=== PATIENT | female | born 1985 | race Caucasian/White ===

== ENCOUNTER 2016-08-06 07:51 | Emergency (ER) | payer SELFPAY ==
[~2016-08-06] VITALS: Ht 165.1 cm; Wt 59.9 kg
[~2016-08-06 07:51] MED LIST: BENZ100C PO; BUTA1CAP29 PO; ONDA4TAB10 SL; PROAIR HFA8.5 GM INH
--- NOTE | 2016-08-06 09:18 | RAD ---
INDICATION: cough, fever COMPARISON: 04/15/2016 FINDINGS: 2 views of chest obtained. No focal airspace consolidation. Mediastinal contour is unremarkable. No gross osseous destructive lesion. IMPRESSION: No focal airspace consolidation or edema.
--- NOTE | 2016-08-06 09:23 | PHYS DOC ---
Past Medical History Past Medical History: Depression, Hypothyroid, Migraines, Seizure, Other Additional Past Medical Histor: Pneumothorax Past Surgical History: Appendectomy, Cholecystectomy, Other Additional Past Surgical Histo: chest tube insertion Smoking: Less than 1pk/day Alcohol Use: None Drug Use: None Adult General Chief Complaint Chief Complaint: NAUSEA/VOMITING/DIARRHA HPI HPI Patient is a 31 year old female who presents with cough, subjective fever, and body aches that started 2 days ago. She's had nasal congestion, left ear pain, and posttussive emesis. She denies sore throat, difficulty breathing, abdominal pain, or diarrhea. She did not receive a flu shot this year. She denies any known sick contacts. She does not have a PCP. Review of Systems Review of Systems Constitutional: Reports subjective fever. Eyes: Denies change in visual acuity, redness, or eye pain. [] HENT: Denies sore throat. Reports left ear pain and nasal congestion. Respiratory: Denies shortness of breath. Reports cough. Cardiovascular: Denies chest pain, palpitations or edema. [] GI: Denies abdominal pain, nausea, bloody stools or diarrhea. Reports posttussive emesis. Musculoskeletal: Denies back pain or joint pain. Reports diffuse myalgias. Integument: Denies rash or skin lesions. [] Neurologic: Denies headache, focal weakness or sensory changes. [] All systems reviewed and negative unless otherwise stated in the HPI. Allergies Allergies Allergies Coded Allergies Type Severity Reaction Last Updated Verified Sulfa (Sulfonamide Antibiotics) Allergy Intermediate hives 12/05/15 Yes Physical Exam Physical Exam Constitutional: Well developed, well nourished, no acute distress, non-toxic appearance. [] HENT: Normocephalic, atraumatic, bilateral external ears normal, oropharynx moist, no oral exudates, nose normal. Bilateral TMs without erythema or bulging. There is no posterior pharyngeal erythema or tonsillar edema. Bilateral nasal turbinates are mildly swollen and erythematous. Eyes: PERRLA, EOMI, conjunctiva normal, no discharge. [] Neck: Normal range of motion, no tenderness, supple, no stridor. [] Cardiovascular: Heart rate regular rhythm, no murmur [] Lungs & Thorax: Bilateral breath sounds clear to auscultation without wheezes, rales, or rhonchi. Abdomen: Bowel sounds normal, soft, no tenderness, no masses, no pulsatile masses. [] Skin: Warm, dry, no erythema, no rash. [] Neurologic: Alert and oriented X 3, normal motor function, normal sensory function, no focal deficits noted. [] Psychologic: Affect normal, judgement normal, mood normal. [] Current Patient Data Vital Signs Vital Signs Date Time Temp Pulse Resp B/P Pulse Ox O2 Delivery O2 Flow Rate FiO2 08/06/16 08:55 99.0 64 20 98 Room Air 99.0 Lab Values Laboratory Tests Test 08/06/16 09:00 Influenza Type A Antigen Positive (NEGATIVE) Influenza Type B Antigen Negative (NEGATIVE) EKG EKG [] Radiology/Procedures Radiology/Procedures REASON: cough, fever PROCEDURE: CHEST PA & LATERAL INDICATION: cough, fever COMPARISON: 04/15/2016 FINDINGS: 2 views of chest obtained. No focal airspace consolidation. Mediastinal contour is unremarkable. No gross osseous destructive lesion. IMPRESSION: No focal airspace consolidation or edema. Course & Med Decision Making Course & Med Decision Making Pertinent Labs and Imaging studies reviewed. (See chart for details) [] Dragon Disclaimer Dragon Disclaimer This electronic medical record was generated, in whole or in part, using a voice recognition dictation system. Departure Departure Impression: Primary Impression: Influenza A Disposition: 01 HOME, SELF-CARE Condition: STABLE Referrals: NO PCP (PCP) Patient Instructions: Influenza, Adult, Ydrh-ys-Fcle Additional Instructions: You tested positive for influenza A. Your chest xray does now show pnuemonia. Please complete all of the prescribed medication. Please use the prescribed inhaler as needed for cough or shortness of breath. Do not use more often than directed. Please take Tylenol and ibuprofen for fever and pain. Use according to package instructions. Please stay home from work this week to avoid exposing others to the flu. It is very contagious! Return to the emergency department if you have high fever not responding to medication, difficult to breathing, or other new or concerning symptoms. Scripts Oseltamivir Phosphate (Tamiflu)75 Mg Capsule1 Cap PO BID #10 CAP Prov:CHELY SHEA 08/06/16 Albuterol Sulfate (Proair Hfa Inhaler)8.5 Gm Hfa.aer.ad1 Puff INH Q4HRS PRN SHORTNESS OF BREATH #1 INHALER Prov:CHELY SHEA 08/06/16 CHELY SHEA Aug 06, 2016 09:23
[2016-08-06 09:33] LABS: OBC FLU VALID
[2016-08-06] MEDS ORDERED: OSEL75CA PO (09:59)
[2016-08-06] MEDS ORDERED: PROAIR HFA8.5 GM INH (09:59)
[2016-08-06 10:15] VITALS: BP 105/71
== END 2016-08-06 10:15 | disposition home or self-care (01) ==
LOC: ER 07:51
DX: J09.X2 Influenza due to identified novel influenza A virus with other respiratory manifestations (principal); H92.02 Otalgia, left ear; E03.9 Hypothyroidism, unspecified; G43.909 Migraine, unspecified, not intractable, without status migrainosus; F17.200 Nicotine dependence, unspecified, uncomplicated; Z90.49 Acquired absence of other specified parts of digestive tract; Z88.2 Allergy status to sulfonamides
CPT/HCPCS: 71020; 81025; 87804; 99285

== ENCOUNTER 2016-09-08 17:47 | Emergency (ER) | payer SELFPAY ==
[~2016-09-08 17:47] MED LIST changes: +OSEL75CA PO
[2016-09-08 18:00] VITALS: BP 139/77
--- NOTE | 2016-09-08 18:20 | ED.ADGEN ---
Past Medical History Past Medical History: Depression, Hypothyroid, Migraines, Seizure, Other Additional Past Medical Histor: Pneumothorax Past Surgical History: Appendectomy, Cholecystectomy, Other Additional Past Surgical Histo: chest tube insertion Alcohol Use: None Drug Use: None Adult General Chief Complaint Chief Complaint: HEADACHE HPI HPI Patient is a 31 year old woman, history of migraine headache, hypothyroidism, depression, who presents to the emergency department with complaint of recurrent migraine headache. Patient states the pain began yesterday. States she did take Imitrex at home today without relief. States that she follows with a nurse practitioner, and does not have anymore of her Imitrex at home, and did not fill the Fioricet which she was given a previous ED visit. Patient states that the symptoms she is experiencing are consistent with her typical migraine, denies any weakness emesis or tingling, is complaining of photophobia, pain in the right-sided back of her head, associated with nausea, vomiting, and mildly blurred vision. Denies any injuries, any exposures, any fevers or chills, any upper or lower respiratory symptoms, any diarrhea, any recent travel or surgery. Review of Systems Review of Systems Constitutional: Denies fever or chills. [] Eyes: Denies change in visual acuity. [] HENT: Denies nasal congestion or sore throat. [] Respiratory: Denies cough or shortness of breath. [] Cardiovascular: Denies chest pain or edema. [] GI: Denies abdominal pain, bloody stools or diarrhea. [] Nausea and vomiting with photophobia and headache. : Denies dysuria. [] Musculoskeletal: Denies back pain or joint pain. [] Integument: Denies rash. [] Neurologic: Denies focal weakness or sensory changes. [] Recurrent migraine headache with photophobia and nausea and vomiting. Endocrine: Denies polyuria or polydipsia. [] Lymphatic: Denies swollen glands. [] Psychiatric: Denies depression or anxiety. [] Current Medications Current Medications Current Medications Medications (Trade) Dose Ordered Sig/Kamila Start Time Stop Time Status Last Admin Dose Admin Diphenhydramine HCl (Benadryl) 25 mg 1X ONCE 09/08/16 18:30 09/08/16 18:31 DC 09/08/16 18:24 25 MG Ketorolac Tromethamine (Toradol) 10 mg 1X ONCE 09/08/16 18:30 09/08/16 18:31 DC 09/08/16 18:24 10 MG Prochlorperazine Edisylate (Compazine) 10 mg 1X ONCE 09/08/16 18:30 09/08/16 18:31 DC 09/08/16 18:24 10 MG Sodium Chloride (Iv Sodium Chloride 0.9% 1000ml Bag) 1,000 ml @ 1,000 mls/hr 1X ONCE 09/08/16 18:30 09/08/16 19:29 DC 09/08/16 18:25 1,000 MLS/HR Allergies Allergies Allergies Coded Allergies Type Severity Reaction Last Updated Verified Sulfa (Sulfonamide Antibiotics) Allergy Intermediate hives 12/05/15 Yes Physical Exam Physical Exam Constitutional: Well developed, well nourished, no acute distress, non-toxic appearance. Patient wearing sunglasses in the room due to photophobia. [] HENT: Normocephalic, atraumatic, bilateral external ears normal, oropharynx moist, no oral exudates, nose normal. [] Eyes: PERRLA, EOMI, conjunctiva normal, no discharge. Photophobia. Vision intact. [] Neck: Normal range of motion, no tenderness, supple, no stridor. [] Cardiovascular:Heart rate regular rhythm, no murmur, S1, S2, no rubs or gallops. No chest tenderness or crepitus. [] Lungs & Thorax: Bilateral breath sounds clear to auscultation, no wheezing, rhonchi, rales. [] Abdomen: Bowel sounds normal, soft, no tenderness, no masses, no pulsatile masses. [] Skin: Warm, dry, no erythema, no rash. [] Back: No tenderness, no CVA tenderness. [] Extremities: No tenderness, no cyanosis, no clubbing, ROM intact, no edema. [] Neurologic: Alert and oriented X 3, normal motor function, normal sensory function, no focal deficits noted. [] Psychologic: Affect normal, judgement normal, mood normal. [] Current Patient Data Vital Signs Vital Signs Date Time Temp Pulse Resp B/P Pulse Ox O2 Delivery O2 Flow Rate FiO2 09/08/16 18:00 97.4 88 20 139/77 99 Room Air 97.4 EKG EKG ECG: Rhythm strip: Sinus rhythm, heart rate 64 bpm, no ectopy. As interpreted by me. [] Radiology/Procedures Radiology/Procedures Not indicated. [] Course & Med Decision Making Course & Med Decision Making Pertinent Labs and Imaging studies reviewed. (See chart for details) Patient describes symptoms consistent with previous episodes of migraine. Abortive therapy was not effective at home, patient states she was running out of the Imitrex and therefore only took half a pill. She does not have a neurologist. No indication for additional imaging at this time based on patient' s history symptoms and examination. IV fluids, Toradol, Compazine and Benadryl administered. On reevaluation, patient's headache is "80% better", she states that she is feeling much better at this time. 9 any dizziness or lightheadedness , patient's notes that the patient's blood pressure has a time spent 90s over 50s, with heart rate in the mid to upper 40s and 50s while patient was asleep. Patient has a very slight body habitus, and she has no complaints of orthostasis, no evidence of infection. We did do orthostatics in the emergency department, after discussion with patient and at bedside, patient remained asymptomatic, ambulating with difficulty, with non-concerning vital sign findings, and stated she was ready to be discharged home. Discuss importance 5 with neurology with the patient, she was given contact information for neurology, along with prescription for Imitrex for abortive therapy, and Fioricet to be used as directed as needed if the Imitrex is not affected. We also discussed concerning symptoms that prompt return to the emergency department. Patient voiced understanding and agreement with plan and instructions and precautions as stated, discharged home in stable condition with her . Dragon Disclaimer Dragon Disclaimer This electronic medical record was generated, in whole or in part, using a voice recognition dictation system. Departure Impression: Primary Impression: Migraine Disposition: HOME, SELF-CARE Condition: IMPROVED Scripts Butalb/Acetaminophen/Caffeine (Fioricet 50-300-40 Mg Capsule)1 Each Capsule1 Each PO PRN Q4HRS PRN MIGRAINE HEADACHE #9 CAP Prov:CHELY TOMAS DO 09/08/16 Sumatriptan Succinate (Imitrex)50 Mg Tablet1 Tab PO UD #6 TAB Take one tablet by mouth once a first onset of migraine symptoms, may repeat 1 if no improvement after 2 hours. Do not take more than 200 mg in 24 hours. Prov:CHELY TOMAS DO 09/08/16 Problem Qualifiers Primary Impression: Migraine Migraine type: with aura Status migrainosus presence: without status migrainosus Intractability: not intractable Qualified Code: G43.109 - Migraine with aura, not intractable, without status migrainosus CHELY TOMAS DO Sep 08, 2016 18:20
[2016-09-08] MEDS ORDERED: BUTA1CAP29 PO (18:26)
[2016-09-08] MEDS ORDERED: SUMA50TA3 PO (18:26)
[2016-09-08] MEDS ORDERED: IV NORMAL SALINE 1000ML BAG 1,000 ML IV ONE (18:30)
[2016-09-08] MEDS ORDERED: KETOROLAC 15 MG/ML VIAL. IV ONE (18:30)
[2016-09-08] MEDS ORDERED: PROCHLORPERAZINE 10 MG/2 ML VIAL. IV ONE (18:30)
[2016-09-08] MEDS ORDERED: DIPHENHYDRAMINE 50 MG/ML VIAL IVP ONE (18:30)
== END 2016-09-08 20:50 | disposition home or self-care (01) ==
LOC: ER 17:47
DX: G43.909 Migraine, unspecified, not intractable, without status migrainosus (principal); E03.9 Hypothyroidism, unspecified; F32.9 Major depressive disorder, single episode, unspecified; Z88.2 Allergy status to sulfonamides
CPT/HCPCS: 96361; 96374; 96375; 99284; J0780; J1200; J1885; J7030

== ENCOUNTER 2016-10-07 14:11 | Emergency (ER) | payer SELFPAY ==
[~2016-10-07] VITALS: Ht 165.1 cm; Wt 60.8 kg
[~2016-10-07 14:11] MED LIST changes: +SUMA50TA3 PO
[2016-10-07] MEDS ORDERED: IV NORMAL SALINE 1000ML BAG 1,000 ML IV ONE (14:15)
[2016-10-07] MEDS ORDERED: ONDANSETRON PF 4 MG/2 ML VIAL. IV ONE ×2 (14:45→17:30)
[2016-10-07 16:01] LABS: BASO # 0.1 x10^3/uL (0.0-0.2); BASO % 0 % (0-3); EOS % 1 % (0-3); HEMATOCRIT 41.6 % (36.0-47.0); HEMOGLOBIN 14.2 g/dL (12.0-15.5); LYMPH # 1.3 x10^3/uL (1.0-4.8); LYMPH % 10 % (24-48); MEAN CORPUSCULAR HEMOGLOBIN 30 pg (25-35); MEAN CORPUSCULAR HGB CONC 34 g/dL (31-37); MEAN CORPUSCULAR VOLUME 89 fL (79-100); MONO % 5 % (0-9); NEUT % 83 % (31-73); PLATELET COUNT 250 x10^3/uL (140-400); RED BLOOD COUNT 4.67 x10^6/uL (3.50-5.40); WHITE BLOOD COUNT 12.5 x10^3/uL (4.0-11.0)
[2016-10-07 16:13] LABS: CREATININE 0.8 mg/dL (0.6-1.0); GFR 82.6; POTASSIUM 3.7 mmol/L (3.5-5.1)
[2016-10-07 16:16] LABS: NEG OBC SER NEG; POS OBC SER POS
[2016-10-07 16:20] LABS: ALBUMIN 4.2 g/dL (3.4-5.0); ALBUMIN/GLOBULIN RATIO 1.1 (1.0-1.7); TOTAL BILIRUBIN 0.8 mg/dL (0.2-1.0)
[2016-10-07 16:54] LABS: BILIRUBIN,URINE NEGATIVE (NEG); GLUCOSE,URINE NEGATIVE (NEG); NITRITE,URINE NEGATIVE (NEG); PROTEIN,URINE NEGATIVE (NEG-TRACE); UROBILINOGEN,URINE 0.2 mg/dL (0.2 mg/dL)
[2016-10-07 17:01] LABS: BARBITURATES NEG (NEG); BENZODIAZEPINES NEG (NEG); CANNABINOIDS POS (NEG); COCAINE NEG (NEG); METHADONE NEG (NEG); OPIATES NEG (NEG); PHENCYCLIDINE NEG (NEG)
[2016-10-07 17:04] LABS: ETHANOL, URINE NEG (NEG)
[2016-10-07 17:09] LABS: BACTERIA,URINE 0 /HPF (0-FEW); RBC,URINE 0 /HPF (0-2); SQUAMOUS EPITHELIAL CELL,UR FEW /LPF; WBC,URINE 0 /HPF (0-4)
--- NOTE | 2016-10-07 17:17 | ED.ADGEN ---
Past Medical History Past Medical History: Depression, Hypothyroid, Migraines, Seizure, Other Additional Past Medical Histor: Pneumothorax Past Surgical History: Appendectomy, Cholecystectomy, Other Additional Past Surgical Histo: chest tube insertion Alcohol Use: None Drug Use: None Adult General Chief Complaint Chief Complaint: SEIZURE HPI HPI Patient is a 31 year old woman, history of seizure disorder, depression, who was taken off her seizure medications several years ago as she had not had a seizure in several years, who presents to the emergency department after a witnessed seizure. Per report, she was at [facility], she began feeling lightheaded and slightly dizzy, and was looking for a place to sit down, when the seizure occurred. Patient's significant other is at bedside, he states that he was called on the patient's phone by a bystander, and told the patient was having a tonic-clonic seizure that lasted for a few minutes. By the time he arrived at her side, the seizure had resolved and the patient was in a postictal state. Patient was transported to the emergency department via EMS, noted to be diaphoretic but is awake, alert, oriented to self and to place, although she is slow to respond, and moving all extremities upon arrival. Per report, patient did "hit her head really hard", against the pavement. Patient is complaining of neck pain and headache, states this is different from previous seizures. She is complaining of nausea, denies any preceding symptoms, denies any chest pain or shortness breath, any weakness numbness or tingling, any recent travel or surgery, and history of DVT or PE, any drugs, alcohol or cigarettes. She denies any potential triggers to the seizure. She states that she does not currently follow the neurologist as she moved to the area about 6 months ago, and has been off medication for some time. C-collar placed upon arrival to the emergency department. Review of Systems Review of Systems Constitutional: Denies fever or chills. [] Eyes: Denies change in visual acuity. [] HENT: Denies nasal congestion or sore throat. [] Respiratory: Denies cough or shortness of breath. [] Cardiovascular: Denies chest pain or edema. [] GI: Denies abdominal pain, nausea, vomiting, bloody stools or diarrhea. [] : Denies dysuria. [] Musculoskeletal: Denies back pain or joint pain. [] Integument: Denies rash. [] Neurologic: Headache, denies any focal weakness numbness or tingling. Endocrine: Denies polyuria or polydipsia. [] Lymphatic: Denies swollen glands. [] Psychiatric: Denies depression or anxiety. [] Current Medications Current Medications Current Medications Medications (Trade) Dose Ordered Sig/Kamila Start Time Stop Time Status Last Admin Dose Admin Ketorolac Tromethamine (Toradol) 10 mg 1X ONCE 10/07/16 17:30 10/07/16 17:31 DC 10/07/16 17:10 10 MG Levetiracetam (Keppra) 500 mg 1X ONCE 10/07/16 17:45 10/07/16 17:46 DC 10/07/16 18:04 500 MG Ondansetron HCl (Zofran) 4 mg 1X ONCE 10/07/16 17:30 10/07/16 17:31 DC 10/07/16 17:10 4 MG Sodium Chloride (Iv Sodium Chloride 0.9% 1000ml Bag) 1,000 ml @ 1,000 mls/hr 1X ONCE 10/07/16 14:15 10/07/16 15:14 DC 10/07/16 14:15 1,000 MLS/HR Allergies Allergies Allergies Coded Allergies Type Severity Reaction Last Updated Verified Sulfa (Sulfonamide Antibiotics) Allergy Intermediate hives 12/05/15 Yes Physical Exam Physical Exam Constitutional: Well developed, well nourished, no acute distress, non-toxic appearance. [] HENT: Normocephalic, no hemotympanum, septal hematoma, patient complaining of tenderness to palpation over the posterior aspect of her head, no lacerations identified, atraumatic, bilateral external ears normal, oropharynx moist, no oral exudates, nose normal. [] No mucosal or tongue trauma. Eyes: PERRLA, EOMI, conjunctiva normal, no discharge. [] Neck: C-collar in place, patient plenty of tenderness throughout the neck, midline and paraspinal. [] Cardiovascular:Heart rate regular rhythm, no murmur [] Lungs & Thorax: Bilateral breath sounds clear to auscultation [] Abdomen: Bowel sounds normal, soft, no tenderness, no masses, no pulsatile masses. No loss of bowel or bladder control. [] Skin: Warm, dry, no erythema, no rash. [] Back: No no step-offs or deformities, no midline tenderness, no CVA tenderness. [] Extremities: No tenderness, no cyanosis, no clubbing, ROM intact, no edema. [] Neurologic: Alert and oriented X 3, normal motor function, normal sensory function, no focal deficits noted. [] Psychologic: Affect normal, judgement normal, mood normal. [] Current Patient Data Vital Signs Vital Signs Date Time Temp Pulse Resp B/P Pulse Ox O2 Delivery O2 Flow Rate FiO2 10/07/16 17:30 72 102/55 99 Room Air 10/07/16 14:11 97.0 18 97.0 Lab Values Laboratory Tests Test 10/07/16 15:55 10/07/16 16:15 10/07/16 16:42 White Blood Count 12.5x10^3/uL (4.0-11.0) H Red Blood Count 4.67x10^6/uL (3.50-5.40) Hemoglobin 14.2g/dL (12.0-15.5) Hematocrit 41.6% (36.0-47.0) Mean Corpuscular Volume 89fL (79-100) Mean Corpuscular Hemoglobin 30pg (25-35) Mean Corpuscular Hemoglobin Concent 34g/dL (31-37) Red Cell Distribution Width 13.0% (11.5-14.5) Platelet Count 250x10^3/uL (140-400) Neutrophils (%) (Auto) 83% (31-73) H Lymphocytes (%) (Auto) 10% (24-48) L Monocytes (%) (Auto) 5% (0-9) Eosinophils (%) (Auto) 1% (0-3) Basophils (%) (Auto) 0% (0-3) Neutrophils # (Auto) 10.4x10^3uL (1.8-7.7) H Lymphocytes # (Auto) 1.3x10^3/uL (1.0-4.8) Monocytes # (Auto) 0.6x10^3/uL (0.0-1.1) Eosinophils # (Auto) 0.2x10^3/uL (0.0-0.7) Basophils # (Auto) 0.1x10^3/uL (0.0-0.2) Sodium Level 140mmol/L (136-145) Potassium Level 3.7mmol/L (3.5-5.1) Chloride Level 105mmol/L (98-107) Carbon Dioxide Level 27mmol/L (21-32) Anion Gap 8 (6-14) Blood Urea Nitrogen 9mg/dL (7-20) Creatinine 0.8mg/dL (0.6-1.0) Estimated GFR (Cockcroft-Gault) 82.6 BUN/Creatinine Ratio 11 (6-20) Glucose Level 89mg/dL (70-99) Calcium Level 9.0mg/dL (8.5-10.1) Total Bilirubin 0.8mg/dL (0.2-1.0) Aspartate Amino Transferase (AST) 17U/L (15-37) Alanine Aminotransferase (ALT) 18U/L (14-59) Alkaline Phosphatase 76U/L (46-116) Total Protein 8.0g/dL (6.4-8.2) Albumin 4.2g/dL (3.4-5.0) Albumin/Globulin Ratio 1.1 (1.0-1.7) Serum Test, Qualitative Negative (NEG) Lactic Acid Level 1.3mmol/L (0.4-2.0) Urine Collection Type Unknown Urine Color Yellow Urine Clarity Cloudy Urine pH 5.0 Urine Specific [place] 1.015 Urine Protein Negativemg/dL (NEG-TRACE) Urine Glucose (UA) Negativemg/dL (NEG) Urine Ketones (Stick) Tracemg/dL (NEG) Urine Blood Negative (NEG) Urine Nitrite Negative (NEG) Urine Bilirubin Negative (NEG) Urine Urobilinogen Dipstick 0.2mg/dL (0.2 mg/dL) Urine Leukocyte Esterase Negative (NEG) Urine RBC 0/HPF (0-2) Urine WBC 0/HPF (0-4) Urine Squamous Epithelial Cells Few/LPF Urine Amorphous Sediment Present/HPF Urine Bacteria 0/HPF (0-FEW) Urine Hyaline Casts Moderate/HPF Urine Mucus Mod/LPF Urine Opiates Screen Neg (NEG) Urine Methadone Screen Neg (NEG) Urine Barbiturates Neg (NEG) Urine Phencyclidine Screen Neg (NEG) Urine Amphetamine/Methamphetamine Neg (NEG) Urine Benzodiazepines Screen Neg (NEG) Urine Cocaine Screen Neg (NEG) Urine Cannabinoids Screen Pos (NEG) Urine Ethyl Alcohol Neg (NEG) Laboratory Tests 10/07/16 15:55 Laboratory Tests 10/07/16 15:55 EKG EKG EC: Sinus rhythm, heart rate 56 bpm, upright axis, QTC of 435, UT of 204 , QRS of 90, no ST elevations or depressions, mild baseline artifact noted, no evidence of acute ST abnormalities. As interpreted by me. [] Radiology/Procedures Radiology/Procedures [] [facility] [address] [place] [address] IMAGING REPORT Signed PATIENT: BURKE YADAV ACCOUNT: [id number] : 1985 LOCATION: ER AGE: 31 SEX: F EXAM STATUS: REG ER ORD. PHYSICIAN: CHELY TOMAS DO REASON: Sz w/ fall/ Head contusion/neck pain PROCEDURE: CT HEAD AND CERVICAL SPINE WO PROCEDURE CT of the head and cervical spine HISTORY Patient fell. Head contusion. Neck pain. Seizure. TECHNIQUE Standard noncontrast imaging. Exposure: One or more of the following individualized dose reduction techniques were utilized for this exam: 1. Automated exposure control. 2. Adjustment of the mA and/or kV according to patient size. 3. Use of iterative reconstruction technique. COMPARISON None FINDINGS Head No evidence of acute intracranial hemorrhage or abnormal extra-axial fluid collection. Messer-white matter distinction is intact. The ventricles are symmetric. No evidence of mass effect or midline shift. Orbits appear unremarkable. Partially visualized paranasal sinuses demonstrate a partially seen left maxillary mucous retention cyst. Mild ethmoid sinus mucosal thickening. No evidence of a depressed skull fracture. Cervical spine Ring of C1 is intact. Relationship of C1 with the occiput is intact. Relationship of C1 with C2 is intact. No evidence of an acute fracture. There is straightening of the normal cervical lordosis, can be due to muscle spasm. No evidence of prevertebral soft tissue swelling or hematoma. Lung apices demonstrate some mild coarse markings which may represent some scarring, bilaterally symmetric. Small apical blebs are seen. No evidence of a locked or perched facet joint. IMPRESSION 1. No acute intracranial abnormality. 2. Mild paranasal sinus disease. 3. No acute fracture or subluxation of the cervical spine. 4. Mild straightening of the cervical lordosis, can be due to muscle spasm. 5. Partially visualized lung apices demonstrate small blebs, and mild coarse markings which may represent scarring. Considering the patient's relatively young age, significance is uncertain. Recommend correlation with chest x-ray. Electronically signed by: Dileep Davidson MD (Oct 07, 2016 17:24:12) DICTATED and SIGNED BY: DILEEP DAVIDSON MD DATE: 10/07/16 [id number] CC: CHELY TOMAS DO; NON,STAFF ~ Chest x-ray: 2 view: Normal cardiopulmonary silhouette, no infiltrates, no effusions, no pneumothorax, no soft tissue or bony abnormalities identified. As interpreted by me. Course & Med Decision Making Course & Med Decision Making Pertinent Labs and Imaging studies reviewed. (See chart for details) Patient received CT of the head and neck after lengthy discussion at bedside, regarding benefits versus risks, with patient's report of loss of consciousness with seizure, striking her head hard against a cement floor, she doesn't a contusion of the neck or head, no laceration. C-collar in place, patient is complaining of back pain as well. Remains slightly slow to respond, although she is moving all extremities. Head CT was on remarkable, patient received laboratory studies, IV fluids, Toradol, with improvement of her pain. Did inform the patient that she would be unable to drive until she is seizure free for 6 months. Patient states that she is aware of this regulation as she was previously unable to drive when she was taking seizure medications until her seizures were controlled. I did discuss findings as above with Dr. Burgos of neurology, he recommends starting the patient on Keppra 500 mg twice a day, and having her follow-up with neurology. I discussed this with patient, she is agreeable this plan, first dose of Keppra given in the ED without issue. Patient tolerated the medication well. As patient does not currently have insurance, I discussed use of [employer] discounts to improve the affordability of her medications. Patient stated that she has a phone and will be able to use this almita. Patient was ambulating in the emergency department without issue, discharged home in stable condition with plan to follow-up with her primary care provider, neurology, to take Keppra as directed, and to return to the ED for concerning symptoms as discussed, or if she requires assistance with insurance issues. [place] Disclaimer [place] Disclaimer This electronic medical record was generated, in whole or in part, using a voice recognition dictation system. Departure Impression: Primary Impression: Seizure Disposition: HOME, SELF-CARE Condition: IMPROVED Scripts Levetiracetam (Keppra)500 Mg Tablet1 Tab PO BID #60 TAB Ref 0 Prov:CHELY TOMAS DO 10/07/16 CHELY TOMAS DO Oct 07, 2016 17:17
--- NOTE | 2016-10-07 17:25 | EKG ---
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
--- NOTE | 2016-10-07 17:25 | RAD ---
PROCEDURE CT of the head and cervical spine HISTORY Patient fell. Head contusion. Neck pain. Seizure. TECHNIQUE Standard noncontrast imaging. Exposure: One or more of the following individualized dose reduction techniques were utilized for this exam: 1. Automated exposure control. 2. Adjustment of the mA and/or kV according to patient size. 3. Use of iterative reconstruction technique. COMPARISON None FINDINGS Head No evidence of acute intracranial hemorrhage or abnormal extra-axial fluid collection. Messer-white matter distinction is intact. The ventricles are symmetric. No evidence of mass effect or midline shift. Orbits appear unremarkable. Partially visualized paranasal sinuses demonstrate a partially seen left maxillary mucous retention cyst. Mild ethmoid sinus mucosal thickening. No evidence of a depressed skull fracture. Cervical spine Ring of C1 is intact. Relationship of C1 with the occiput is intact. Relationship of C1 with C2 is intact. No evidence of an acute fracture. There is straightening of the normal cervical lordosis, can be due to muscle spasm. No evidence of prevertebral soft tissue swelling or hematoma. Lung apices demonstrate some mild coarse markings which may represent some scarring, bilaterally symmetric. Small apical blebs are seen. No evidence of a locked or perched facet joint. IMPRESSION 1. No acute intracranial abnormality. 2. Mild paranasal sinus disease. 3. No acute fracture or subluxation of the cervical spine. 4. Mild straightening of the cervical lordosis, can be due to muscle spasm. 5. Partially visualized lung apices demonstrate small blebs, and mild coarse markings which may represent scarring. Considering the patient's relatively young age, significance is uncertain. Recommend correlation with chest x-ray. Electronically signed by: Dileep Davidson MD (Oct 07, 2016 17:24:12)
[2016-10-07] MEDS ORDERED: KETOROLAC 15 MG/ML VIAL. IV ONE (17:30)
[2016-10-07] MEDS ORDERED: LEVETIRACETAM 500 MG TABLET. PO ONE (17:45)
[2016-10-07 18:04] VITALS: BP 103/71
[2016-10-07] MEDS ORDERED: LEVE500T56 PO (18:25)
--- NOTE | 2016-10-08 08:41 | RAD ---
Chest, 2 views, 10/07/2016: History: Seizure, fall The heart size and pulmonary vascularity are normal. No pulmonary infiltrates are seen. There is no evidence of pleural fluid or pneumothorax. IMPRESSION: No acute cardiopulmonary abnormality is detected.
== END 2016-10-07 19:02 | disposition home or self-care (01) ==
LOC: ER 14:11
DX: G40.909 Epilepsy, unspecified, not intractable, without status epilepticus (principal); S00.83XA Contusion of other part of head, initial encounter; M54.9 Dorsalgia, unspecified; R55 Syncope and collapse; M54.2 Cervicalgia; R61 Generalized hyperhidrosis; R11.0 Nausea; E03.9 Hypothyroidism, unspecified; G43.909 Migraine, unspecified, not intractable, without status migrainosus; F32.9 Major depressive disorder, single episode, unspecified; Z88.2 Allergy status to sulfonamides; W22.8XXA Striking against or struck by other objects, initial encounter; Y93.89 Activity, other specified; Y92.89 Other specified places as the place of occurrence of the external cause; Y99.8 Other external cause status
CPT/HCPCS: 36415; 70450; 71020; 72125; 80053; 80305; 80320; 81001; 83605; 84703; 85027; 93005; 96361; 96374; 96375; 96376; 99285; J1885; J2405; J7030; G0481

== ENCOUNTER 2017-02-04 06:20 | Emergency (ER) | payer SELFPAY ==
[~2017-02-04] VITALS: Ht 162.6 cm; Wt 59.9 kg
[~2017-02-04 06:20] MED LIST changes: +LEVE500T56 PO
[2017-02-04 07:01] LABS: CALCIUM 8.9 mg/dL (8.5-10.1); CREATININE 0.7 mg/dL (0.6-1.0); GFR 96.4; POTASSIUM 3.3 mmol/L (3.5-5.1)
[2017-02-04 07:04] LABS: BASO % 1 % (0-3); EOS % 3 % (0-3); HEMATOCRIT 41.7 % (36.0-47.0); HEMOGLOBIN 14.1 g/dL (12.0-15.5); LYMPH # 1.6 x10^3/uL (1.0-4.8); LYMPH % 20 % (24-48); MEAN CORPUSCULAR HEMOGLOBIN 31 pg (25-35); MEAN CORPUSCULAR HGB CONC 34 g/dL (31-37); MEAN CORPUSCULAR VOLUME 91 fL (79-100); MONO % 7 % (0-9); NEUT % 70 % (31-73); PLATELET COUNT 234 x10^3/uL (140-400); RED CELL DISTRIBUTION WIDTH 12.7 % (11.5-14.5); WHITE BLOOD COUNT 8.2 x10^3/uL (4.0-11.0)
[2017-02-04 07:07] LABS: DIRECT BILIRUBIN 0.1 mg/dL (0.0-0.2); TOTAL BILIRUBIN 0.6 mg/dL (0.2-1.0); TOTAL PROTEIN 7.6 g/dL (6.4-8.2)
[2017-02-04 07:11] LABS: BILIRUBIN,URINE NEGATIVE (NEG); GLUCOSE,URINE NEGATIVE (NEG); NITRITE,URINE NEGATIVE (NEG); PH,URINE 6.5; PROTEIN,URINE NEGATIVE (NEG-TRACE); UROBILINOGEN,URINE 0.2 mg/dL (0.2 mg/dL)
--- NOTE | 2017-02-04 07:12 | RAD ---
Portable chest, 02/04/2017: History: Fatigue, shortness of breath Comparison is made to a study from 10/07/2016. The heart size and pulmonary vascularity are normal. The lungs are clear. There is no evidence of pleural fluid. IMPRESSION: No acute cardiopulmonary abnormality is detected.
[2017-02-04 07:18] LABS: BACTERIA,URINE 0 /HPF (0-FEW); RBC,URINE 0 /HPF (0-2); SQUAMOUS EPITHELIAL CELL,UR MOD /LPF; WBC,URINE 0 /HPF (0-4)
--- NOTE | 2017-02-04 07:35 | PHYS DOC ---
Past Medical History Past Medical History: Depression, Hypothyroid, Migraines, Seizure, Other Additional Past Medical Histor: Pneumothorax Past Surgical History: No Surgical History, Appendectomy, Cholecystectomy, Other Additional Past Surgical Histo: chest tube insertion Alcohol Use: None Drug Use: None Adult General Chief Complaint Chief Complaint: Palpitations HPI HPI 31-year-old female presenting to the emergency department today with generalized weakness and reporting palpitations at home. She reports a remote history of possible seizure disorder for which she initially took Keppra and then was changed to a different antiseizure medication. She denies any shaking or loss of consciousness. She denies any pain anywhere. She no longer is feeling her palpitations. She reports a history of symptomatic low blood sugar. Onset today. Location generalized. Duration intermittent. No alleviating or exacerbating factors present. Review of systems is negative for chest pain shortness of breath abdominal pain headache neck stiffness confusion cyanosis lethargy fevers chills or any new rashes. She denies diarrhea or blood in stools or heavy vaginal bleeding. She denies being . All other review of systems is negative unless otherwise noted in history of present illness. ED course: 31-year-old female presenting with generalized fatigue and malaise and history of palpitations. Vital signs unremarkable. Normal physical examination. EKG shows sinus rhythm with a regular rate. Wallace is normal. Patient has a right bundle-branch morphology however her QRS is not prolonged. Otherwise ST segments are congruent. Not suggestive of ACS.Chest x-ray reviewed by myself shows no obvious infiltrate or pneumothorax present. No obvious acute cardiopulmonary process present. Blood work unremarkable. Patient did not have any dysrhythmias on telemetry in the emergency department monitoring. She was subsequently discharged home to follow up with her PCP. Possible Holter monitor in f/u. K+ just below the reference range of normal. I recommend increasing potassium in the patient's diet. The patient was then discharged home in stable condition to follow up with their primary care physician over the next 2-3 days. They were to return if their symptoms worsened or if they were concerned for any reason. [id number] discharge instructions and return precautions were given. Patient's questions were answered to their satisfaction. Patient is comfortable plan. Review of Systems Review of Systems SEE ABOVE. Allergies Allergies Allergies Coded Allergies Type Severity Reaction Last Updated Verified Sulfa (Sulfonamide Antibiotics) Allergy Intermediate hives 12/05/15 Yes levetiracetam Allergy Intermediate worsening seizures 02/04/17 Yes Physical Exam Physical Exam SEE ABOVE Constitutional: Well developed, well nourished, no acute distress, non-toxic appearance. [] HENT: Normocephalic, atraumatic, bilateral external ears normal, oropharynx moist, no oral exudates, nose normal. [] Eyes: PERRLA, EOMI, conjunctiva normal, no discharge. [] Neck: Normal range of motion, no tenderness, supple, no stridor. [] Cardiovascular:Heart rate regular rhythm, no murmur [] Lungs & Thorax: Bilateral breath sounds clear to auscultation [] Abdomen: Bowel sounds normal, soft, no tenderness, no masses, no pulsatile masses. [] Skin: Warm, dry, no erythema, no rash. [] Back: No tenderness, no CVA tenderness. [] Extremities: No tenderness, no cyanosis, no clubbing, ROM intact, no edema. [] Neurologic: Alert and oriented X 3, normal motor function, normal sensory function, no focal deficits noted. [] Psychologic: Affect normal, judgement normal, mood normal. [] Current Patient Data Vital Signs Vital Signs Date Time Temp Pulse Resp B/P (MAP) Pulse Ox O2 Delivery O2 Flow Rate FiO2 02/04/17 07:08 77 11 105/71 (82) 98 Room Air 02/04/17 06:31 98.2 98.2 Lab Values Laboratory Tests Test 02/04/17 05:36 02/04/17 06:27 02/04/17 06:35 POC Urine HCG, Qualitative Hcg negative (Negative) Urine Collection Type Unknown Urine Color Yellow Urine Clarity Clear Urine pH 6.5 Urine Specific [place] <=1.005 Urine Protein Negative mg/dL (NEG-TRACE) Urine Glucose (UA) Negative mg/dL (NEG) Urine Ketones (Stick) Negative mg/dL (NEG) Urine Blood Negative (NEG) Urine Nitrite Negative (NEG) Urine Bilirubin Negative (NEG) Urine Urobilinogen Dipstick 0.2 mg/dL (0.2 mg/dL) Urine Leukocyte Esterase Negative (NEG) Urine RBC 0 /HPF (0-2) Urine WBC 0 /HPF (0-4) Urine Squamous Epithelial Cells Mod /LPF Urine Bacteria 0 /HPF (0-FEW) White Blood Count 8.2 x10^3/uL (4.0-11.0) Red Blood Count 4.60 x10^6/uL (3.50-5.40) Hemoglobin 14.1 g/dL (12.0-15.5) Hematocrit 41.7 % (36.0-47.0) Mean Corpuscular Volume 91 fL (79-100) Mean Corpuscular Hemoglobin 31 pg (25-35) Mean Corpuscular Hemoglobin Concent 34 g/dL (31-37) Red Cell Distribution Width 12.7 % (11.5-14.5) Platelet Count 234 x10^3/uL (140-400) Neutrophils (%) (Auto) 70 % (31-73) Lymphocytes (%) (Auto) 20 % (24-48) L Monocytes (%) (Auto) 7 % (0-9) Eosinophils (%) (Auto) 3 % (0-3) Basophils (%) (Auto) 1 % (0-3) Neutrophils # (Auto) 5.7 x10^3uL (1.8-7.7) Lymphocytes # (Auto) 1.6 x10^3/uL (1.0-4.8) Monocytes # (Auto) 0.6 x10^3/uL (0.0-1.1) Eosinophils # (Auto) 0.3 x10^3/uL (0.0-0.7) Basophils # (Auto) 0.0 x10^3/uL (0.0-0.2) Sodium Level 140 mmol/L (136-145) Potassium Level 3.3 mmol/L (3.5-5.1) L Chloride Level 105 mmol/L (98-107) Carbon Dioxide Level 24 mmol/L (21-32) Anion Gap 11 (6-14) Blood Urea Nitrogen 10 mg/dL (7-20) Creatinine 0.7 mg/dL (0.6-1.0) Estimated GFR (Cockcroft-Gault) 96.4 Glucose Level 115 mg/dL (70-99) H Calcium Level 8.9 mg/dL (8.5-10.1) Total Bilirubin 0.6 mg/dL (0.2-1.0) Direct Bilirubin 0.1 mg/dL (0.0-0.2) Aspartate Amino Transferase (AST) 16 U/L (15-37) Alanine Aminotransferase (ALT) 24 U/L (14-59) Alkaline Phosphatase 74 U/L (46-116) Troponin I Quantitative < 0.017 ng/mL (0.000-0.055) Total Protein 7.6 g/dL (6.4-8.2) Albumin 4.0 g/dL (3.4-5.0) Lipase 116 U/L (73-393) Laboratory Tests 02/04/17 06:35 Laboratory Tests 02/04/17 06:35 EKG EKG [] Radiology/Procedures Radiology/Procedures [] Course & Med Decision Making Course & Med Decision Making Pertinent Labs and Imaging studies reviewed. (See chart for details) [] Dragon Disclaimer Dragon Disclaimer This electronic medical record was generated, in whole or in part, using a voice recognition dictation system. Departure Departure Impression: Primary Impression: Malaise and fatigue Disposition: HOME, SELF-CARE Condition: STABLE Referrals: NON,STAFF (PCP) ROMEL VARGAS MD Patient Instructions: Fatigue Additional Instructions: Thank you for allowing us to participate in your care today. Followup with your primary care physician in 3 days if your symptoms do not improve. Call your Primary Doctor tomorrow and inform them of your visit today. If you do not have a primary care provider you can ask for a list of our primary care providers. Return to the emergency department you have any new or concerning findings. This should be evaluated by the primary care physician and any necessary consulting services for continued management within a few days after discharge. Return to emergency room if you have any new or concerning symptoms including but not limited to fever, chills, nausea, vomiting, intractable pain, any new rashes, chest pain, shortness of air, uncontrolled bleeding, difficulty breathing, and/or vision loss. ALBER RODRIGUEZ MD Feb 04, 2017 07:35
--- NOTE | 2017-02-04 07:49 | EKG ---
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
[2017-02-04 07:53] VITALS: BP 110/65
== END 2017-02-04 07:58 | disposition home or self-care (01) ==
LOC: ER 06:20
DX: R53.81 Other malaise (principal); R53.83 Other fatigue; R00.2 Palpitations; E03.9 Hypothyroidism, unspecified; G43.909 Migraine, unspecified, not intractable, without status migrainosus; Z90.49 Acquired absence of other specified parts of digestive tract; Z88.2 Allergy status to sulfonamides; Z88.8 Allergy status to other drugs, medicaments and biological substances
CPT/HCPCS: 36415; 71010; 80048; 80076; 81001; 81025; 83690; 84484; 85025; 93005; 99285-25

== ENCOUNTER → 2017-02-08 | Outpatient (CLI) | payer OTHER ==
[2017-02-04 07:53] VITALS: BP 110/65
== END | disposition home or self-care (01) ==
LOC: LAB 06:57
PROVIDERS: ATTEND Internal Medicine
DX: E16.2 Hypoglycemia, unspecified (principal); R56.9 Unspecified convulsions
CPT/HCPCS: 36415; 82947; 82950

== ENCOUNTER 2017-06-13 07:44 | Emergency (ER) | payer SELFPAY ==
[~2017-06-13] VITALS: Ht 162.6 cm; Wt 59.9 kg
[2017-06-13 08:02] LABS: BILIRUBIN,URINE NEGATIVE (NEG); GLUCOSE,URINE NEGATIVE (NEG); NITRITE,URINE NEGATIVE (NEG); PH,URINE 6.5; PROTEIN,URINE NEGATIVE (NEG-TRACE); UROBILINOGEN,URINE 0.2 mg/dL (0.2 mg/dL)
[2017-06-13 08:12] LABS: BACTERIA,URINE 0 /HPF (0-FEW); RBC,URINE 0 /HPF (0-2); SQUAMOUS EPITHELIAL CELL,UR MOD /LPF
[2017-06-13] MEDS ORDERED: IV NORMAL SALINE 1000ML BAG 1,000 ML IV ONE (08:30)
[2017-06-13] MEDS ORDERED: ONDANSETRON PF 4 MG/2 ML VIAL. IV ONE (08:30)
[2017-06-13 08:51] LABS: BASO % 1 % (0-3); EOS % 2 % (0-3); HEMATOCRIT 42.8 % (36.0-47.0); HEMOGLOBIN 14.4 g/dL (12.0-15.5); LYMPH # 1.7 x10^3/uL (1.0-4.8); LYMPH % 19 % (24-48); MEAN CORPUSCULAR HEMOGLOBIN 31 pg (25-35); MEAN CORPUSCULAR HGB CONC 34 g/dL (31-37); MEAN CORPUSCULAR VOLUME 93 fL (79-100); MONO % 6 % (0-9); NEUT % 73 % (31-73); PLATELET COUNT 245 x10^3/uL (140-400); RED BLOOD COUNT 4.63 x10^6/uL (3.50-5.40); RED CELL DISTRIBUTION WIDTH 14.4 % (11.5-14.5); WHITE BLOOD COUNT 8.9 x10^3/uL (4.0-11.0)
[2017-06-13 08:55] VITALS: BP 99/60
--- NOTE | 2017-06-13 08:55 | PHYS DOC ---
Past Medical History Past Medical History: Depression, Hypothyroid, Migraines, Seizure, Other Additional Past Medical Histor: Pneumothorax Past Surgical History: Appendectomy, Cholecystectomy, Other Additional Past Surgical Histo: chest tube insertion Alcohol Use: None Drug Use: None Adult General Chief Complaint Chief Complaint: NAUSEA/VOMITING/DIARRHA HPI HPI 31-year-old female presenting to the emergency department today with nausea vomiting and diarrhea. She has a history of a cholecystectomy and appendectomy. She says it started yesterday is associated with generalized soreness of the abdominal musculature. She reports vomiting nonbloody nonbilious vomitus. She had one episode of watery stools yesterday. She denies any fevers or home. She denies chest pain. onset today. location gi tract. duration intermittent. Review of systems is negative for shortness of breath fevers chills neck stiffness confusion cyanosis lethargy numbness weakness tingling. She denies vision changes slurred speech. All other review of systems is negative unless otherwise noted in history of present illness. ED course: 31-year-old female presenting with nausea vomiting and diarrhea. Afebrile with a normal heart rate on examination. Abdomen is soft nontender palpation. IV fluids administered along with nausea medications. Blood work within normal limits. Repeat abdominal exam continues to show soft nontender abdomen. Patient is feeling much better. The patient was then discharged home in stable condition to follow up with their primary care physician over the next 2-3 days. They were to return if their symptoms worsened or if they were concerned for any reason. [id number] discharge instructions and return precautions were given. Patient's questions were answered to their satisfaction. Patient is comfortable plan. Review of Systems Review of Systems SEE ABOVE. Current Medications Current Medications Current Medications Medications (Trade) Dose Ordered Sig/Kamila Start Time Stop Time Status Last Admin Dose Admin Ondansetron HCl (Zofran) 4 mg 1X ONCE 06/13/17 08:30 06/13/17 08:31 DC 06/13/17 08:37 4 MG Sodium Chloride 1,000 ml @ 1,000 mls/hr 1X ONCE 06/13/17 08:30 06/13/17 09:29 DC 06/13/17 08:37 1,000 MLS/HR Allergies Allergies Allergies Coded Allergies Type Severity Reaction Last Updated Verified Sulfa (Sulfonamide Antibiotics) Allergy Intermediate hives 12/05/15 Yes levetiracetam Allergy Intermediate worsening seizures 02/04/17 Yes Physical Exam Physical Exam SEE ABOVE Constitutional: Well developed, well nourished, no acute distress, non-toxic appearance. [] HENT: Normocephalic, atraumatic, bilateral external ears normal, oropharynx moist, no oral exudates, nose normal. [] Eyes: PERRLA, EOMI, conjunctiva normal, no discharge. Neck: Normal range of motion, no tenderness, supple, no stridor. Cardiovascular:Heart rate regular rhythm, no murmur [] Lungs & Thorax: Bilateral breath sounds clear to auscultation Abdomen:Soft nontender abdomen without rebound tenderness or guarding present. Negative McBurneys point. Negative Lombardi sign. No ecchymosis present. Skin: Warm, dry, no erythema, no rash. [] Back: No tenderness, no CVA tenderness. Extremities: No tenderness, no cyanosis, no clubbing, ROM intact, no edema. Neurologic: Alert and oriented X 3, normal motor function, normal sensory function, no focal deficits noted. [] Psychologic: Affect normal, judgement normal, mood normal. [] Current Patient Data Vital Signs Vital Signs Date Time Temp Pulse Resp B/P (MAP) Pulse Ox O2 Delivery O2 Flow Rate FiO2 06/13/17 08:55 57 19 99/60 (73) 96 Room Air 06/13/17 08:00 98.2 98.2 Lab Values Laboratory Tests Test 06/13/17 07:54 06/13/17 07:55 06/13/17 08:40 POC Urine HCG, Qualitative Hcg negative (Negative) Urine Collection Type Unknown Urine Color Yellow Urine Clarity Clear Urine pH 6.5 Urine Specific [place] 1.010 Urine Protein Negative mg/dL (NEG-TRACE) Urine Glucose (UA) Negative mg/dL (NEG) Urine Ketones (Stick) Negative mg/dL (NEG) Urine Blood Negative (NEG) Urine Nitrite Negative (NEG) Urine Bilirubin Negative (NEG) Urine Urobilinogen Dipstick 0.2 mg/dL (0.2 mg/dL) Urine Leukocyte Esterase Negative (NEG) Urine RBC 0 /HPF (0-2) Urine WBC 1-4 /HPF (0-4) Urine Squamous Epithelial Cells Mod /LPF Urine Bacteria 0 /HPF (0-FEW) Urine Mucus Slight /LPF White Blood Count 8.9 x10^3/uL (4.0-11.0) Red Blood Count 4.63 x10^6/uL (3.50-5.40) Hemoglobin 14.4 g/dL (12.0-15.5) Hematocrit 42.8 % (36.0-47.0) Mean Corpuscular Volume 93 fL (79-100) Mean Corpuscular Hemoglobin 31 pg (25-35) Mean Corpuscular Hemoglobin Concent 34 g/dL (31-37) Red Cell Distribution Width 14.4 % (11.5-14.5) Platelet Count 245 x10^3/uL (140-400) Neutrophils (%) (Auto) 73 % (31-73) Lymphocytes (%) (Auto) 19 % (24-48) L Monocytes (%) (Auto) 6 % (0-9) Eosinophils (%) (Auto) 2 % (0-3) Basophils (%) (Auto) 1 % (0-3) Neutrophils # (Auto) 6.5 x10^3uL (1.8-7.7) Lymphocytes # (Auto) 1.7 x10^3/uL (1.0-4.8) Monocytes # (Auto) 0.6 x10^3/uL (0.0-1.1) Eosinophils # (Auto) 0.2 x10^3/uL (0.0-0.7) Basophils # (Auto) 0.0 x10^3/uL (0.0-0.2) Sodium Level 138 mmol/L (136-145) Potassium Level 3.8 mmol/L (3.5-5.1) Chloride Level 102 mmol/L (98-107) Carbon Dioxide Level 27 mmol/L (21-32) Anion Gap 9 (6-14) Blood Urea Nitrogen 8 mg/dL (7-20) Creatinine 0.8 mg/dL (0.6-1.0) Estimated GFR (Cockcroft-Gault) 82.6 BUN/Creatinine Ratio 10 (6-20) Glucose Level 91 mg/dL (70-99) Calcium Level 8.6 mg/dL (8.5-10.1) Total Bilirubin 0.7 mg/dL (0.2-1.0) Aspartate Amino Transferase (AST) 15 U/L (15-37) Alanine Aminotransferase (ALT) 8 U/L (14-59) L Alkaline Phosphatase 64 U/L (46-116) Total Protein 7.7 g/dL (6.4-8.2) Albumin 3.9 g/dL (3.4-5.0) Albumin/Globulin Ratio 1.0 (1.0-1.7) Lipase 83 U/L (73-393) Laboratory Tests 06/13/17 08:40 Laboratory Tests 06/13/17 08:40 EKG EKG [] Radiology/Procedures Radiology/Procedures [] Course & Med Decision Making Course & Med Decision Making Pertinent Labs and Imaging studies reviewed. (See chart for details) [] Dragon Disclaimer Dragon Disclaimer This electronic medical record was generated, in whole or in part, using a voice recognition dictation system. Departure Departure Impression: Primary Impression: N&V (nausea and vomiting) Additional Impression: Diarrhea Disposition: 01 HOME, SELF-CARE Condition: STABLE Referrals: LEXIE HARRIS M.D. (PCP) Patient Instructions: Nausea and Vomiting Additional Instructions: Thank you for allowing us to participate in your care today. Followup with your primary care physician in 3 days if your symptoms do not improve. Call your Primary Doctor tomorrow and inform them of your visit today. If you do not have a primary care provider you can ask for a list of our primary care providers. Return to the emergency department you have any new or concerning findings. This should be evaluated by the primary care physician and any necessary consulting services for continued management within a few days after discharge. Return to emergency room if you have any new or concerning symptoms including but not limited to fever, chills, nausea, vomiting, intractable pain, any new rashes, chest pain, shortness of air, uncontrolled bleeding, difficulty breathing, and/or vision loss. You may have been prescribed medication that can change in your level of thinking and ability to operate machinery. These medications include hydrocodone and Ativan. Also, Benadryl has been known to do this as well. Be sure to check with your pharmacist and ask if the medications you've prescribed can affect your level of consciousness. I recommend not operating heavy machinery or driving while on medication such as these. Scripts Ondansetron (ZOFRAN ODT) 4 Mg Tab.rapdis 1 TAB SL PRN Q8HRS Y for NAUSEA, #6 TAB Prov: RODRIGUEZ,ALBER L MD 06/13/17 Problem Qualifiers ALBER RODRIGUEZ MD Jun 13, 2017 08:55
[2017-06-13 09:05] LABS: CALCIUM 8.6 mg/dL (8.5-10.1); CREATININE 0.8 mg/dL (0.6-1.0); GFR 82.6; POTASSIUM 3.8 mmol/L (3.5-5.1)
[2017-06-13 09:10] LABS: ALBUMIN 3.9 g/dL (3.4-5.0); TOTAL BILIRUBIN 0.7 mg/dL (0.2-1.0); TOTAL PROTEIN 7.7 g/dL (6.4-8.2)
[2017-06-13] MEDS ORDERED: ONDA4TAB10 SL (09:38)
== END 2017-06-13 09:46 | disposition home or self-care (01) ==
LOC: ER 07:44
DX: R11.2 Nausea with vomiting, unspecified (principal); R19.7 Diarrhea, unspecified; F32.9 Major depressive disorder, single episode, unspecified; E03.9 Hypothyroidism, unspecified; G43.909 Migraine, unspecified, not intractable, without status migrainosus; Z90.49 Acquired absence of other specified parts of digestive tract; Z88.2 Allergy status to sulfonamides; Z88.1 Allergy status to other antibiotic agents
CPT/HCPCS: 36415; 80053; 81001; 81025; 83690; 85025; 96361; 96374; 99284; J2405; J7030